=== PATIENT | male | born 1965 | race Caucasian/White ===

== ENCOUNTER 2017-03-29 10:13 | Emergency (ER) | payer OTHER ==
--- NOTE | 2017-03-29 10:30 | EDPHY ---
H & P Time Seen by Provider: 03/29/17 10:23 HPI/ROS: CHIEF COMPLAINT: Finger laceration HISTORY OF PRESENT ILLNESS: Patient is a 51-year-old man who comes to the emergency department complaining of a laceration to his right index finger. He states that he ran his finger along a newspaper subscription solicitor and sliced his finger about 2 hours ago. He was concerned because a continues to bleed. Normal range of motion and sensation. REVIEW OF SYSTEMS: Constitutional: denies: chills, fever, recent illness, recent injury EENTM: denies: blurred vision, double vision, nose congestion Respiratory: denies: cough, shortness of breath Cardiac: denies: chest pain, irregular heart rate, lightheadedness, palpitations Gastrointestinal/Abdominal: denies: abdominal pain, diarrhea, nausea, vomiting, blood streaked stools Genitourinary: denies: dysuria, frequency, hematuria, pain Musculoskeletal: denies: joint pain, muscle pain Skin: See HPI Neurological: denies: headache, numbness, paresthesia, tingling, dizziness, weakness Hematologic/Lymphatic: denies: blood clots, easy bleeding, easy bruising Immunologic/allergic: denies: HIV/AIDS, transplant EXAM: GENERAL: Well-appearing, well-nourished and in no acute distress. HEAD: Atraumatic, normocephalic. EYES: Pupils equal round and reactive to light, extraocular movements intact, sclera anicteric, conjunctiva are normal. ENT: TMs normal, nares patent, oropharynx clear without exudates. Moist mucous membranes. NECK: Normal range of motion, supple without lymphadenopathy or JVD. LUNGS: Breath sounds clear to auscultation bilaterally and equal. No wheezes rales or rhonchi. HEART: Regular rate and rhythm without murmurs, rubs or gallops. ABDOMEN: Soft, nontender, normoactive bowel sounds. No guarding, no rebound. No masses appreciated. BACK: No CVA tenderness, no spinal tenderness, step-offs or deformities EXTREMITIES: Normal range of motion, no pitting or edema. No clubbing or cyanosis. NEUROLOGICAL: Cranial nerves II through XII grossly intact. Normal speech, normal gait. 5/5 strength, normal movement in all extremities, normal sensation PSYCH: Normal mood, normal affect. SKIN: Laceration to left index finger just distal to the DIP joint. Normal range of motion. Normal sensation. No sign of foreign body. No sign of joint or bone involvement. Source: Patient Exam Limitations: No limitations - Personal History Current Tetanus/Diphtheria Vaccine: Yes - Medical/Surgical History Hx Asthma: No Hx Chronic Respiratory Disease: No Hx Diabetes: No Hx Cardiac Disease: No Hx Renal Disease: No Hx Cirrhosis: No Hx Alcoholism: No Other PMH: High blood pressure, asthma - Family History Significant Family History: No pertinent family hx - Social History Smoking Status: Never smoked Alcohol Use: Sober Drug Use: None Constitutional: Initial Vital Signs Temperature (C) 36.5 C 03/29/17 10:27 Heart Rate 78 03/29/17 10:27 Respiratory Rate 16 03/29/17 10:27 Blood Pressure 138/101 H 03/29/17 10:27 O2 Sat (%) 95 03/29/17 10:27 O2 Delivery Mode Room Air Allergies/Adverse Reactions: iodine Allergy (Severe, Verified 03/29/17 10:27) Anaphylaxis codeine Allergy (Verified 03/29/17 10:23) Penicillins Allergy (Verified 03/29/17 10:23) Home Medications: Medication Instructions Recorded Albuterol Hfa Anes Only 03/29/17 Amlodipine Besylate 5 mg 03/29/17 Symbicort 80-4.5 Mcg Inhaler 03/29/17 Medical Decision Making Procedures: Procedure: Laceration repair. Verbal consent was obtained from the patient. The 1.5 cm left index finger laceration was anesthetized with 0.5% bupivacaine digital block. The wound was irrigated copiously according to protocol, draped and explored to its base. It was approximately 3 mm deep. There were no deep structures involved. No tendon , nerve, or vascular injury was identified when explored through full range of motion. No foreign body was identified. The wound was repaired with 6.0 Prolene, 5 sutures, interrupted. The wound repair was simple without wound margin revisement or multiple flap alignment. The procedure was performed by myself. A dressing was then placed with sterile gauze and bacitracin. ED Course/Re-evaluation: Patient tolerated the procedure well. We discussed precautions and suture care. We discussed removal in 10 days. Discussed indications for returning sooner. Differential Diagnosis: Partial list of the Differential diagnosis considered include but were not limited to; laceration and although unlikely based on the history and physical exam, I also considered foreign body, infection, joint injury, bony injury, fracture, tendon injury, nerve injury, vascular injury. I discussed these differential diagnoses and the plan with the patient as well as the usual and expected course. The patient understands that the diagnosis is provisional and that in medicine we are not always correct and that further workup is often warranted. Usual and customary warnings were given. All of the patient's questions were answered. The patient was instructed to return to the emergency department should the symptoms at all worsen or return, otherwise to followup with the physician as we discussed. Departure - Departure Disposition: Home, Routine, Self-Care Clinical Impression: Laceration Condition: Fair Instructions: Care For Your Stitches (ED) Additional Instructions: Have your stitches removed in 10 days Referrals: ED,PHYSICIAN ONDUTY [Primary Care Provider] - As per Instructions Stand Alone Forms: Work Limited Duty
[2017-03-29 10:35] VITALS: BP 138/101; PULSE 78; RESP 16; TEMP 97.7; O2SAT 95
== END 2017-03-29 11:10 | disposition home or self-care (01) ==
LOC: CED 10:13
PROC: 0HQGXZZ Repair Left Hand Skin, External Approach (ICD-10-PCS; principal; 2017-03-29)
DX: S61.210A Laceration without foreign body of right index finger without damage to nail, initial encounter (principal); J45.909 Unspecified asthma, uncomplicated; W27.5XXA Contact with paper-cutter, initial encounter